=== PATIENT | female | born 1935 | race Caucasian/White ===

== ENCOUNTER 2016-09-27 09:58 | Day surgery (SDC) | payer MEDICARE, BC ==
[2016-09-24 16:05] VITALS: BMI 31.2
[~2016-09-27 09:58] MED LIST: DEXAMETHASONE SOD PHOSPHATE 10 MG/ML 1 ML VIAL IV ONE; HEPARIN SODIUM,PORCINE 5,000 UNIT/ML 1 ML VIAL SQ ONE; LACTATED RINGERS 1,000 ML IV SCH; MIDAZOLAM 2 MG/2 ML VIAL IV PRN; ONDANSETRON 4 MG/2 ML VIAL IVP ONE; ceFAZolin 2 GM in SODIUM CHLORIDE 0.9% 100 ML IVPB ONE
[2016-09-27] MEDS ORDERED: LIDOCAINE 1% 20 ML VIAL (10MG/ML) FOR IV START SQ ONE (10:19)
--- NOTE | 2016-09-27 11:25 | P.GSHP ---
History of Present Illness H&P Date: 09/27/16 Chief Complaint: Right upper quadrant pain This a 81-year-old female who's had complete the right upper quadrant pain. Her recent workup shows evidence of cholelithiasis. She does today for laparoscopic cholecystectomy. - Constitutional Constitutional: Reports as per HPI Past Medical History Past Medical History: GERD/Reflux, Hyperlipidemia Additional Past Medical History / Comment(s): constipation, hiatal hernia, gallstones,colon stricture,benign tremors,anemia History of Any Multi-Drug Resistant Organisms: MRSA Date of last positivie culture/infection: 12/12/2014 MDRO Source:: ABD INCISION Past Surgical History: Bowel Resection, Hysterectomy, Orthopedic Surgery Additional Past Surgical History / Comment(s): right knee replacement,bowel resection w/ colostomy , 02-28-15 REVERSAL OF COLOSTOMY. COLONOSCOPY, BILAT CATARACTS Past Anesthesia/Blood Transfusion Reactions: Motion Sickness, Postoperative Nausea & Vomiting (PONV) Additional Past Anesthesia/Blood Transfusion Reaction / Comment(s): unk family hx. no complications to prior blood transfusions Past Psychological History: Depression Smoking Status: Never smoker Past Alcohol Use History: Rare Past Drug Use History: None Reported - Past Family History Mother Family Medical History: Cancer Additional Family Medical History / Comment(s): skin Brother(s) Family Medical History: Cancer Additional Family Medical History / Comment(s): brothers x 3-lung ca,brother x1- colon ca Sister(s) Additional Family Medical History / Comment(s): aneurysm Medications and Allergies Home Medications Medication Instructions Recorded Confirmed Type Omeprazole [PriLOSEC] 20 mg PO BID 11/22/14 09/27/16 History Sertraline HCl [Zoloft] 100 mg PO QAM 11/22/14 09/27/16 History Multivitamins, Thera [Theragran] 1 each PO DAILY 02/16/15 09/27/16 History Primidone [Primidone] 50 mg PO HS 02/16/15 09/27/16 History Calcium Carbonate [Calcium] 500 mg PO DAILY 09/24/16 09/27/16 History Lactobacillus Acidophilus 1 each PO DAILY 09/24/16 09/27/16 History [Acidophilus] Allergies Allergy/AdvReac Type Severity Reaction Status Date / Time No Known Allergies Allergy Verified 05/26/17 10:01 Surgical - Exam Vital Signs Temp Pulse Resp BP Pulse Ox 97.0 F L 68 15 137/79 98 09/27/16 10:10 09/27/16 10:10 09/27/16 10:10 09/27/16 10:10 09/27/16 10:10 - General well developed, no distress - Eyes PERRL - ENT normal pinna - Neck no masses - Respiratory normal expansion - Cardiovascular Rhythm: regular - Abdomen Abdomen: soft, non tender Assessment and Plan Plan: Cholelithiasis. We'll perform laparoscopic cholecystectomy
[2016-09-27] MEDS ORDERED: LIDOCAINE 1% INJ 10MG/ML (20 ML MDV) ONE (11:36)
[2016-09-27] MEDS ORDERED: ROCURONIUM BROMIDE 10 MG/ML 10 ML VIAL IV ONE (11:36)
[2016-09-27] MEDS ORDERED: fentaNYL (PF) 50 MCG/ML 2 ML AMP ONE (11:36)
[2016-09-27] MEDS ORDERED: NEOSTIGMINE 1 MG/ML 10 ML VIAL ONE (11:36)
[2016-09-27] MEDS ORDERED: GLYCOPYRROLATE 0.2 MG/ML 2 ML VIAL ONE (11:36)
[2016-09-27] MEDS ORDERED: SUCCINYLCHOLINE CHLORIDE 100 MG/5 ML SYR IV ONE (11:36)
[2016-09-27] MEDS ORDERED: PROPOFOL 10 MG/ML 20 ML VIAL IV ONE (11:36)
[2016-09-27] MEDS ORDERED: ePHEDrine 50 MG/ML 1 ML AMP ONE (11:36)
[2016-09-27] MEDS ORDERED: MIDAZOLAM 2 MG/2 ML VIAL ONE (11:36)
[2016-09-27] MEDS ORDERED: BUPIVACAIN-EPI 0.25%-1:200,000 30 ML VIAL SQ ONE ×2 (12:02)
--- NOTE | 2016-09-27 12:24 | P.OP ---
Date of Procedure: 09/27/16 Preoperative Diagnosis: Cholelithiasis Chronic cholecystitis Postoperative Diagnosis: Cholelithiasis Chronic cholecystitis Procedure(s) Performed: Laparoscopic cholecystectomy Implants: Anesthesia: URBAN Surgeon: Derek Ruiz Estimated Blood Loss (ml): 5 Pathology: other (Gallbladder gallbladder) Condition: stable Disposition: PACU Indications for Procedure: Operative Findings: Description of Procedure: The patient was placed on the operating table. The patient received a general endotracheal tube anesthesia. The patients abdomen was prepped and draped in the usual sterile fashion. Through an infraumbilical stab incision, the fascia of the anterior abdominal wall was grasped with a pair of Kochers and then the Veress needle was placed in the peritoneal cavity. Position of the Veress needle was confirmed with positive drop test. The abdomen was then insufflated. After adequate insufflation, the 10 mm trocar was placed in the peritoneal cavity. Following this the laparoscope was placed in the peritoneal cavity. The patient was placed in the head-up, right side up position and then a 5 mm trocar was placed in the right lateral and right subcostal position under direct visualization. A 8 mm trocar was placed in the epigastric position. The gallbladder was grasped in the fundus and infundibulum. Traction on the gallbladder was placed in the lateral and the cephalad positions. The triangle of Calot was visualized.. The cystic duct was bluntly dissected until the union of the cystic duct and common bile duct was seen. The cystic duct was then divided and sealed with the Harmonic scissors. A PDS Endoloop was then placed throughout the cystic duct stump. The cystic artery divided and sealed with the Harmonic scissors. The gallbladder was then removed from the liver bed using Harmonic scissors. The gallbladder was then extracted through the epigastric port site. Operative field was checked for any bleeding spots and Harmonic scissors was used to coagulate the liver bed. The abdomen was irrigated. The trocars were removed. The skin was closed using interrupted 3-0 Vicryl suture. Dermabond dressing were applied. The patient tolerated the procedure well.
[2016-09-27 12:49] VITALS: TEMP 96.9
[2016-09-27] MEDS: HYDROmorphone 1 MG/ML 1 ML SYRINGE IVP PRN ×3 (12:51→13:20)
[2016-09-27 14:07] VITALS: RESP 18
[2016-09-27 14:26] VITALS: BP 115/71; PULSE 78
== END 2016-09-27 14:53 | disposition home or self-care (01) ==
LOC: OR 09:58
PROVIDERS: ATTEND Surgery
DX: K80.10 Calculus of gallbladder with chronic cholecystitis without obstruction (principal); F32.9 Major depressive disorder, single episode, unspecified; K21.9 Gastro-esophageal reflux disease without esophagitis; Z98.84 Bariatric surgery status; Z90.710 Acquired absence of both cervix and uterus; Z79.899 Other long term (current) drug therapy; Z86.14 Personal history of Methicillin resistant Staphylococcus aureus infection; Z96.651 Presence of right artificial knee joint
CPT/HCPCS: 88304; 47562; J2250; J1644; J1100; J2710; J0690; J2405; J2001; J3010; J1170; J0330; J2704

== ENCOUNTER → 2020-02-08 | Outpatient (CLI) | payer MEDICARE, BC ==
--- NOTE | 2020-02-08 17:39 | BD ---
EXAMINATION TYPE: Axial Bone Density DATE OF EXAM: 02/08/2020 COMPARISON: DEXA bone scan 2010 CLINICAL HISTORY: Postmenopausal female. Height: 5 FT Weight: 156 FRAX RISK QUESTIONS: Alcohol (3 or more units per day): NO Family History (Parent hip fracture): NO Glucocorticoids (More than 3mos): YES (Ex: prednisone, prednisolone, methylprednisolone, dexamethasone, and hydrocortisone). History of Fracture in Adulthood: NO Secondary Osteoporosis: 1. Type 1 Diabetes: NO 2. Hyperthyroidism: NO 3. Menopause before 45: NO 4. Malnutrition: NO 5. Chronic liver disease: NO Rheumatoid Arthritis: YES Current Tobacco Use: NO RISK FACTORS HISTORY OF: Family History of Osteoporosis: NO Active: YES Postmenopausal woman: UNSURE Lost more than 2 inches in height since high school: YES MEDICATIONS: Prednisone or other steroids: YES How Long: APPROX 1-2 YEARS Additional Medications: MEDS FOR TREMERS, OMEPRAZOLE, ASTHMA MEDS,ZOLOFT Additional History: EXAM MEASUREMENTS: Bone mineral densitometry was performed using the [employer] ([employer]) System. Bone mineral density as measured about the Lumbar spine is: ----- L1-L4(G/cm2): 0.906 T Score Values are as follows: ----- L2: -2.8 ----- L3: -1.4 ----- L4: -2.2 ----- L1-L4: -2.3 Bone mineral density has: DECREASED -4.9 % since study of: 2010 Bone mineral density about the R hip (g/cm2): 0.621 Bone mineral density about the L hip (g/cm2): 0.619 T Score values are as follows: -----R Neck: -3.0 -----L Neck: -3.0 -----R Total: -2.5 -----L Total: -2.6 Bone mineral density has: DECREASED -5.7 % since study of: 2010 IMPRESSION: Osteoporosis (T Score less than -2.5) remains present. There remains increased fracture risk and therapy is usually indicated based on age. Re-Screen 1-2 years. NOTE: T-SCORE=SD OF THE YOUNG ADULT MEAN.
--- NOTE | 2020-02-09 11:45 | MM ---
Reason for exam: screening (asymptomatic). Last mammogram was performed 4 years and 10 months ago. History: Patient is postmenopausal. Took hormonal contraceptives for 7 years. Physical Findings: A clinical breast exam by your physician is recommended on an annual basis and results should be correlated with mammographic findings. MG 3D Screening Mammo W/Cad Bilateral CC and MLO view(s) were taken. Prior study comparison: April 11, 2015, bilateral MG 3d screening mammo w/cad. There are scattered fibroglandular densities. No significant changes when compared with prior studies. ASSESSMENT: Benign, BI-RAD 2 RECOMMENDATION: Routine screening mammogram of both breasts in 1 year.
== END | disposition home or self-care (01) ==
LOC: RADMAMWWP 14:39
PROVIDERS: ATTEND Family Medicine
DX: Z12.31 Encounter for screening mammogram for malignant neoplasm of breast (principal); M81.0 Age-related osteoporosis without current pathological fracture
CPT/HCPCS: 77063; 77067; 77080

== ENCOUNTER → 2021-01-17 | Outpatient (CLI) | payer MEDICARE, BC | END | disposition home or self-care (01) | LOC: LABWHC1 14:10 | PROVIDERS: ATTEND Otolaryngology | DX: J30.89 Other allergic rhinitis (principal) | CPT/HCPCS: 36415; 86001 ==

== ENCOUNTER → 2023-12-12 | Outpatient (CLI) | payer MEDICARE, BC | END | disposition home or self-care (01) | LOC: LABPRL 11:35 | PROVIDERS: ATTEND Family Medicine | CPT/HCPCS: 80053; 80061; 82306; 83036; 84443; 85027 ==

== ENCOUNTER 2024-11-22 10:41 | Day surgery (SDC) | payer MEDICARE, BC ==
[2024-11-03 14:03] VITALS: BMI 23.6
[~2024-11-22 10:41] MED LIST changes: -DEXAMETHASONE SOD PHOSPHATE 10 MG/ML 1 ML VIAL IV ONE; -HEPARIN SODIUM,PORCINE 5,000 UNIT/ML 1 ML VIAL SQ ONE; -LACTATED RINGERS 1,000 ML IV SCH; +LIDOCAINE 1% (10MG/ML) FOR IV START INTRADERMA PRN; -MIDAZOLAM 2 MG/2 ML VIAL IV PRN; -ONDANSETRON 4 MG/2 ML VIAL IVP ONE; -ceFAZolin 2 GM in SODIUM CHLORIDE 0.9% 100 ML IVPB ONE
[2024-11-22] MEDS ORDERED: LACTATED RINGERS 1,000 ML IV SCH (10:56)
[2024-11-22] MEDS: IV FLUID CONTINUATION 1,000 ML IV ONE ×2 (11:23→11:40)
[2024-11-22 11:33] VITALS: RESP 16; TEMP 97.8
[2024-11-22] MEDS: LACTATED RINGERS 1,000 ML IV SCH (11:36)
[2024-11-22] MEDS ORDERED: PROPOFOL 10 MG/ML 20 ML VIAL IV ONE (11:43)
--- NOTE | 2024-11-22 11:45 | P.GSHP ---
History of Present Illness H&P Date: 11/22/24 Chief Complaint: Screening colonoscopy Is an 89-year-old female who presents today for screening colonoscopy. Patient denies any significant GI complaints. Past Medical History Past Medical History: GERD/Reflux, Hyperlipidemia Additional Past Medical History / Comment(s): constipation, hiatal hernia, colon stricture,benign tremors,anemia, SEASONAL ALLERGIES, had recent arthririts flare up History of Any Multi-Drug Resistant Organisms: MRSA Date of last positivie culture/infection: 12/12/2014 MDRO Source:: ABD INCISION Past Surgical History: Bowel Resection, Cholecystectomy, Hysterectomy, Orthopedic Surgery Additional Past Surgical History / Comment(s): right knee replacement, bowel resection w/ colostomy , 02-28-15 REVERSAL OF COLOSTOMY. COLONOSCOPY, BILAT CATARACTS, Past Anesthesia/Blood Transfusion Reactions: Motion Sickness, Postoperative Nausea & Vomiting (PONV) Additional Past Anesthesia/Blood Transfusion Reaction / Comment(s): unk family hx. no complications to prior blood transfusions Smoking Status: Never smoker - Past Family History Mother Family Medical History: Cancer Additional Family Medical History / Comment(s): skin Brother(s) Family Medical History: Cancer Additional Family Medical History / Comment(s): brothers x 3-lung ca,brother x1- colon ca Sister(s) Additional Family Medical History / Comment(s): aneurysm Medications and Allergies Home Medications Medication Instructions Recorded Confirmed Type Omeprazole [PriLOSEC] 40 mg PO BID 11/22/14 11/22/24 History Sertraline HCl [Zoloft] 100 mg PO QAM 11/22/14 11/22/24 History Calcium Carbonate [Calcium] 600 mg PO DAILY 03/10/17 11/22/24 History Cholecalciferol [Vitamin D3] 1,000 unit PO DAILY 03/10/17 11/22/24 History Fluticasone Nasal Mobile [Flonase 2 spr EA NOSTRIL DAILY PRN 03/10/17 11/22/24 History Nasal Mobile] Psyllium Husk [Metamucil] 0.4 gm PO DAILY 03/10/17 11/22/24 History Celecoxib [CeleBREX] 200 mg PO DAILY 11/03/24 11/22/24 History Loratadine-Pseudoeph 10-240 mg 1 tab PO DAILY 11/03/24 11/22/24 History [Claritin-D 24 Hour] Topiramate 25 mg PO HS 11/03/24 11/22/24 History Topiramate 25 mg PO QAM 11/03/24 11/22/24 History Allergies Allergy/AdvReac Type Severity Reaction Status Date / Time No Known Allergies Allergy Verified 11/22/24 11:18 Surgical - Exam Vital Signs Temp Pulse Resp BP Pulse Ox 97.8 F 72 16 131/62 99 11/22/24 11:05 11/22/24 11:05 11/22/24 11:05 11/22/24 11:05 11/22/24 11:05 - General well developed, no distress - Eyes PERRL - ENT normal pinna - Neck no masses - Respiratory normal expansion - Cardiovascular Rhythm: regular - Abdomen Abdomen: soft, non tender Assessment and Plan Assessment: Will perform screening colonoscopy
--- NOTE | 2024-11-22 11:57 | P.OP ---
Date of Procedure: 11/22/24 Preoperative Diagnosis: screening colonoscopy Postoperative Diagnosis: Normal colon Procedure(s) Performed: Colonoscopy Anesthesia: MAC Surgeon: Derek Ruiz Pathology: none sent Condition: stable Disposition: PACU Description of Procedure: PROCEDURE: The patient was placed on the endoscopy table in the lateral position. Digital rectal examination was performed which revealed no abnormalities. The prostate was symmetrical without nodules. Flexible colonoscope was then placed in the patient's anus and passed throughout the entire colon. The ileocecal valve was visualized. The cecum, ascending, transverse, descending and sigmoid colon were normal. The rectum was normal as well. There were no masses, polyps or diverticula noted in the entire colon. SUMMARY OF FINDINGS: Normal colonoscopy. Recommended follow-up in 10 years.
[2024-11-22 12:43] VITALS: BP 134/55; PULSE 60
== END 2024-11-22 13:16 | disposition home or self-care (01) ==
LOC: ORWHC2ENDO 10:41
PROVIDERS: ATTEND Surgery
DX: Z12.11 Encounter for screening for malignant neoplasm of colon (principal); E78.5 Hyperlipidemia, unspecified; K21.9 Gastro-esophageal reflux disease without esophagitis; K44.9 Diaphragmatic hernia without obstruction or gangrene; G25.2 Other specified forms of tremor; G43.909 Migraine, unspecified, not intractable, without status migrainosus; F41.9 Anxiety disorder, unspecified; F32.A Depression, unspecified; Z91.89 Other specified personal risk factors, not elsewhere classified; Z79.1 Long term (current) use of non-steroidal anti-inflammatories (NSAID); Z79.899 Other long term (current) drug therapy; Z86.14 Personal history of Methicillin resistant Staphylococcus aureus infection; Z90.49 Acquired absence of other specified parts of digestive tract; Z80.0 Family history of malignant neoplasm of digestive organs
CPT/HCPCS: J2704; G0105